=== PATIENT | female | born 1990 | race Hispanic/Latino ===

== ENCOUNTER 2017-06-10 21:52 | Emergency (ER) | payer SELFPAY ==
[2017-06-10 22:15] LABS: APPEARANCE,URINE HAZY (CLEAR); BILIRUBIN,URINE SMALL (NEGATIVE); COLOR,URINE YELLOW (YELLOW); GLUCOSE, URINE (UA) NEGATIVE (NEGATIVE); KETONES,URINE 5 mg/dL (NEGATIVE); LEUKOCYTE ESTERASE ,URINE NEGATIVE (NEGATIVE); NITRATE,URINE NEGATIVE (NEGATIVE); OCCULT BLOOD,URINE NEGATIVE (NEGATIVE); PH,URINE 5.5 (5.0-8.0); PROTEIN,URINE TRACE (NEGATIVE)
[2017-06-10 22:18] LABS: AMORPHOUS SEDIMENT,UR Few /LPF (None Seen); BACTERIA,URINE Few /HPF (None Seen); RBC,URINE None Seen /HPF (0-1); WBC,URINE 0-1 /HPF (0-1)
[2017-06-10 22:19] LABS: HCG,QUAL RESULT NEGATIVE (NEGATIVE)
[2017-06-10 22:30] LABS: BASOPHILS % (AUTO) 0.5 % (0.0-5.0); EOSINOPHILS % (AUTO) 1.7 % (0.0-8.0); HEMATOCRIT 47.4 % (36-48); LYMPHOCYTES % (AUTO) 24.4 % (21.0-51.0); MEAN CORPUSCULAR HGB CONC 33.5 g/dL (32.0-36.0); MEAN CORPUSCULAR VOLUME 92.4 fL (79-99); MONOCYTES % (AUTO) 5.3 % (3.0-13.0); NEUTROPHILS % (AUTO) 68.1 % (40.0-77.0); PLATELET COUNT (AUTO) 207 K/uL (130-400); RED BLOOD CELL COUNT(AUTO) 5.13 MIL/uL (4.00-5.50); RED CELL DISTRIBUTION WIDTH 13.1 % (11.0-15.5); WHITE BLOOD COUNT (AUTO) 12.6 K/uL (4.8-10.8)
[2017-06-10 22:45] LABS: POTASSIUM 3.8 mmol/L (3.5-5.1)
[2017-06-10 22:50] LABS: BILIRUBIN,TOTAL 0.4 mg/dL (0.2-1.0); TOTAL PROTEIN, SERUM 6.3 g/dL (6.0-8.3)
[2017-06-10] MEDS ORDERED: SODIUM CHLORIDE 0.9% 1000ML 1,000 ML IV ONE (23:37)
[2017-06-11] MEDS ORDERED: KETOROLAC TROMETHAMINE 30MG/ML ONE (00:22)
[2017-06-11] MEDS ORDERED: LEVOFLOXACIN 500 MG TABLET ONE (00:43)
== END 2017-06-11 00:48 | disposition home or self-care (01) ==
LOC: EDH 21:52
DX: A09 Infectious gastroenteritis and colitis, unspecified (principal)
CPT/HCPCS: 36415; 80053; 81001; 81025; 82150; 82270; 83690; 85025; 87046; 87177; 87205; 96361; 96374; 99284; J1885; J7030

== ENCOUNTER 2019-08-14 14:45 | Emergency (ER) | payer SELFPAY ==
[2019-08-14] MEDS ORDERED: ACETAMINOPHEN 325 MG TAB ONE (15:02)
[2019-08-14 15:57] LABS: RAPID GROUP A STREP NEGATIVE (NEGATIVE)
== END 2019-08-14 16:39 | disposition home or self-care (01) ==
LOC: EDH 14:45
DX: J06.9 Acute upper respiratory infection, unspecified (principal)
CPT/HCPCS: 87804; 87880